=== PATIENT | female | born 1985 | race Caucasian/White ===

== ENCOUNTER 2021-09-21 16:36 | Outpatient (CLI) | payer OTHER, SELFPAY | END 2021-09-21 23:59 | disposition short-term general hospital (02) | LOC: LABSPEC 16:39 | PROVIDERS: PCP Family Medicine; Visit Provider Physician Assistant | DX: U07.1 COVID-19 (principal) | CPT/HCPCS: 87635; U0003; U0005 ==

== ENCOUNTER → 2023-03-27 | Outpatient (CLI) | payer OTHER, SELFPAY ==
[2023-03-30 15:08] LABS: HPV APTIMA, High Risk Negative (Negative)
== END | disposition home or self-care (01) ==
LOC: LABSPEC 10:59
PROVIDERS: PCP Family Medicine; Visit Provider Student in an Organized Health Care Education/Training Program
DX: Z12.4 Encounter for screening for malignant neoplasm of cervix (principal)
CPT/HCPCS: 87624; 88175; G0145

== ENCOUNTER → 2024-03-11 | Outpatient (CLI) | payer SELFPAY ==
[2024-03-11 10:35] LABS: Hematocrit 40.2 % (37-47); Hemoglobin 12.9 g/dL (12.0-15.0); Mean Corp Hgb Conc 32.1 g/dL (32-36); Mean Corpuscular Hgb 27.8 pg (27.0-32.0); Mean Corpuscular Volume 86.6 fL (81-99); Mean Platelet Vol. 9.6 fl (6.2-12.0); Platelet Count 296 K/mm3 (150-450); RBC Distribution Width SD 44.5 fl (35.1-43.9); Red Blood Count 4.64 M/mm3 (4.2-5.4); White Blood Count 6.1 K/mm3 (4.4-11.0)
[2024-03-11 11:18] LABS: Glucose 75GTT - 30 minutes 120 mg/dL (100-160)
[2024-03-11 11:22] LABS: T3 Total - Triiodothyronine 1.07 ng/mL (0.6-1.81)
[2024-03-11 11:25] LABS: Glucose 75GTT - Fasting 102 mg/dL (70-99)
[2024-03-11 11:39] LABS: Free T3 2.2 pg/mL (2.18-3.98); T4 Free Direct 0.83 ng/dL (0.76-1.46); Thyroid Stim Hormone (TSH) 1.99 uIU/mL (0.358-3.74)
[2024-03-11 11:42] LABS: Glucose 75GTT - 60 minutes 142 mg/dL (100-160)
[2024-03-11 11:58] LABS: Thyroid Stim Hormone (TSH) 2.15 uIU/mL (0.358-3.74)
[2024-03-11 12:04] LABS: Thyroid Stim Hormone (TSH) 2.02 uIU/mL (0.358-3.74)
[2024-03-11 12:43] LABS: Glucose 75GTT - 120 minutes 121 mg/dL (70-140)
[2024-03-12 10:09] LABS: Insulin Level 45.4 uIU/mL (2.6-24.9)
[2024-03-12 10:09] LABS: Insulin Level 8.6 uIU/mL (2.6-24.9)
== END | disposition home or self-care (01) ==
PROVIDERS: PCP Family Medicine; Referring Provider Obstetrics & Gynecology; Visit Provider Obstetrics & Gynecology
DX: N93.9 Abnormal uterine and vaginal bleeding, unspecified (principal); Z13.29 Encounter for screening for other suspected endocrine disorder; Z83.3 Family history of diabetes mellitus; Z13.1 Encounter for screening for diabetes mellitus
CPT/HCPCS: 36415; 82951; 82952; 83525; 84146; 84439; 84443; 84480; 84481; 85027

== ENCOUNTER → 2024-03-13 | Outpatient (CLI) | payer SELFPAY, OTHER ==
--- NOTE | 2024-03-13 12:27 | US_ITS ---
STUDY: ULTRASOUND OF THE FEMALE PELVIS - COMPLETE REASON FOR EXAM: Female, 38 years old. ABNORMAL UTERINE BLEEDING LMP: TECHNIQUE: Transabdominal and Transvaginal TECHNICAL QUALITY: Adequate. COMPARISON: None. FINDINGS: The uterus is anteverted and is in a midline position. The uterus measures 11.2 x 7.6 x 6.7 cm. Normal uterine cervix. The endometrium measures 25 mm in thickness, and is hyperechoic. 21 mm round hypoechoic mass either within or adjacent to the endometrial cavity may represent an endometrial mass or a submucosal fibroid. Another 1.9 Center hypoechoic mass in the fundus the uterus superior to the endometrial stripe consistent with a submucosal fibroid. 3 cm exophytic hypoechoic mass of the anterior body of uterus consistent with a subserosal fibroid. I.U.D. - The patient does not have an I.U.D. The right ovary is visualized. The right ovary measures 3.2 x 2.4 x 2.0 cm. There is no right ovarian cyst or ovarian mass. There is no visualized right adnexal mass or complex lesion. There is normal arterial and normal venous vascularity. The left ovary is visualized. The left ovary measures 2.4 x 3.1 x 1.4 cm. There is no left ovarian cyst or ovarian mass. There is no visualized left adnexal mass or complex lesion. There is normal arterial and normal venous vascularity. There is no fluid in the cul-de-sac. The pre void volume of the bladder was ml. The post void volume of the bladder was ml. Polycystic ovary disease: No. US/Pelvic w/ Transvaginal IMPRESSION: 1. Enlarged fibroid uterus including a 3 cm exophytic subserosal fibroid in the anterior body of the uterus adjacent to the bladder. 2. Thickened endometrium with a possible 2.1 cm hypoechoic mass which may represent an endometrial mass or a submucosal fibroid. Hysteroscopy may be useful. Electronically Signed: Tapan De Leon MD at 10:42 EDT ,
== END | disposition home or self-care (01) ==
PROVIDERS: PCP Family Medicine; Referring Provider Obstetrics & Gynecology; Visit Provider Obstetrics & Gynecology
DX: N93.9 Abnormal uterine and vaginal bleeding, unspecified (principal)
CPT/HCPCS: 76830; 76856

== ENCOUNTER 2025-01-01 13:03 | Emergency (ER) | payer OTHER, SELFPAY ==
[2025-01-01 13:04] VITALS: BP 141/94; PULSE 99; RESP 14; TEMP 36.8; O2SAT 100; BMI 27.1
--- NOTE | 2025-01-01 13:23 | VDLE_ITS ---
Reason For Study Reason For Study: Left leg pain RIGHT LEFT CFV is compressible, spontaneous, phasic, competent GSV is normal. and demonstrates normal augmentation. CFV is compressible, spontaneous, phasic, competent, Procedure and demonstrates normal augmentation. This is a venous duplex using B-mode, color flow and FV is compressible, spontaneous, phasic, competent spectral Doppler. and demonstrates normal augmentation. Exam performed portable in ED. POP V is compressible, spontaneous, phasic, competent A preliminary report was called and/or faxed to and demonstrates normal augmentation. Genaro. T/P Trunk is compressible. PTV is compressible. LT PerV is compressible. Thrombus filled varicose veins noted in the anterior lateral distal thigh to knee. VL/Venous Duplex US, Unilateral Interpretation Summary Acute superficial vein thrombosis noted in distal left thigh varicosities. Deep veins of the left lower extremity are patent and compressible segmentally. There is no evidence of left lower extremity deep vein thrombosis. The left great saphenous vein appears patent an d compressible segmentally. Ordering Physician: Marvel Lam Referring Physician: James Swift M.D. Performed By: Ananya Lin RVT
--- NOTE | 2025-01-01 13:23 | ED.VIS.LOWEX ---
HPI History of Present Illness Chief Complaint: Lower Extremity Injury Detail of Chief Complaint: Leg pain/swelling Informant: patient Narrative Narrative: Patient presents to the emergency department complaint of pain and swelling to her left leg. She noticed it today has history of some varicose veins. Denies any trauma to her leg. She had a hysterectomy in July. No prior DVT. No significant medical history. PFSH PFSH Home Medications ?Medication ?Instructions ?Recorded ?Last Taken ?Type naproxen 500 mg tablet 500 mg PO BID #14 tabs 01/01/25 Unknown Rx Allergy/AdvReac Type Severity Reaction Status Date / Time No Known Allergies Allergy Verified 01/01/25 13:06 Surgical History H/O: hysterectomy Social History Smoking Status: Never smoker ROS ROS ED Review of Systems ROS Unobtainable: other Constitutional Constitutional ED: Reports lethargy; Denies chills, fever(s), sweats or weight loss Eyes Eyes: Denies blurry vision, change in vision or diplopia ENT ENT ED: Denies rhinorrhea or sore throat Cardiovascular Cardiovascular: Denies chest pain, orthopnea or racing heartbeat Respiratory/Chest Respiratory/Chest: Reports dyspnea and dyspnea on exertion; Denies cough, orthopnea or sputum Gastrointestinal Gastrointestinal: Denies abdominal pain, diarrhea, nausea or vomiting Genitourinary Genitourinary ED: Denies dysuria, hematuria or urinary frequency Musculoskeletal Musculoskeletal: Reports other Details: Left leg/thigh pain and swelling ; Denies arthralgias, back pain, myalgias or neck pain Integumentary Denies abscess, Abrasions or rash Neurologic Neurologic: Denies headache(s) or weakness Psychiatric Psychiatric: Denies anxiety, depression or suicidal thoughts Endocrine Endocrinology: Denies polydipsia, polyphagia or polyuria Hematologic/Lymphatic Hematologic/Lymphatic: Denies easy bleeding, easy bruising or lymphadenopathy Allergic/Immunologic Allergic/Immunologic ED: Denies mouth swelling, tongue swelling or urticaria EXAM Physical Exam Const Vital Signs: 01/01/25 13:04 Temperature 98.3 F Temperature Source Oral Pulse Rate 99 Respiratory Rate 14 Blood Pressure 141/94 H Blood Pressure Mean 109 Pulse Ox 100 Positive well nourished and well developed General Appearance ED: well developed and NAD HEENT Reports TM's clear and moist mucous membranes normocephalic and atraumatic; Negative for trauma or tenderness Tympanic Membrane ED: Yes TM's clear Eyes PERRL and EOMs intact bilaterally General Eye ED: Negative for pale conjunctiva or scleral icterus Neck no lymphadenopathy, supple and no JVD General: Negative for tenderness Chest Wall inspection of chest normal and palpation of chest normal Chest: Negative for tenderness Resp normal respiratory effort and clear to auscultation bilaterally Effort and Inspection: Negative for respiratory distress or pain with movement Auscultation: Negative for rhonchi, wheezes or diminished lung sounds Cardio regular rate, regular rhythm, S1 normal heart sound, S2 normal heart sound and no murmurs Peripheral Pulses: pulses 2+ throughout GI normal to inspection, nondistended, normoactive bowel sounds, soft to palpation, non-tender, non-distended and no masses Back/Spine no CVA tenderness and no thoracic nor lumbar tenderness Extremity Extremity Narrative: Left leg-patient has what appears to be superficial thrombophlebitis of the left lateral distal thigh. Area slightly tender to palpation. Some fullness of the venous system. Neurovascularly intact distally. General Extremety ED: Negative for edema General Extremity: Negative for edema Neuro oriented x3, CN's II-XII intact bilaterally, no sensory deficits noted and gait normal Sensorium / Orientation: awake, alert, oriented to person, oriented to place and oriented to time Motor Exam: strength 5/5 throughout and strength abnormal Psych mental status grossly normal Skin no rashes or lesions noted and no wounds MDM MDM MDM Narrative Medical decision making narrative: Patient has what appears to be a superficial thrombophlebitis of the left lower extremity/thigh. Will obtain a venous Doppler to rule out involvement of the deep venous system. Venous Doppler of the left lower extremity obtained was negative for DVT. Patient was noted to have superficial thrombophlebitis. Patient advised to use warm compresses to the area and will start on naproxen. Will refer to vascular surgeon for follow-up if she continues to have any issues. Discharge Plan Triage Chief Complaint: Lower Extremity Injury ED Provider: Marvel Lam Dx/Rx/DC Orders Clinical Impression: Superficial thrombophlebitis Instructions: ED Thrombophlebitis, Superficial Prescriptions: New naproxen 500 mg tablet 500 mg PO BID Qty: 14 0RF Primary Care Provider: Maritza Park NP Referrals: Ike Swift DO [Med Staff - [employer] Clerk] - Vinicius Lindsey MD [Med Staff - Active Staff] - 3-5 Days Print Language: Ukrainian Disposition Disposition: Home, Self Care
[2025-01-01 13:59] VITALS: BP 141/94; PULSE 99; RESP 14; TEMP 36.8; O2SAT 100
== END 2025-01-01 14:02 | disposition home or self-care (01) ==
PROVIDERS: Emergency Provider Emergency Medicine; PCP Nurse Practitioner Family; Visit Provider Emergency Medicine
DX: M79.605 Pain in left leg (principal); I80.02 Phlebitis and thrombophlebitis of superficial vessels of left lower extremity; M79.89 Other specified soft tissue disorders; Z90.710 Acquired absence of both cervix and uterus
CPT/HCPCS: 93971; 99282

== ENCOUNTER → 2025-03-28 | Outpatient (CLI) | payer SELFPAY, OTHER ==
--- NOTE | 2025-03-28 08:25 | VDLE_ITS ---
Reason For Study Reason For Study: Varicose veins RIGHT LEFT CFV is compressible, spontaneous, phasic, competent CFV is compressible, spontaneous, phasic, competent, and demonstrates normal augmentation. and demonstrates normal augmentation. FV is compressible, spontaneous, phasic, competent FV is compressible, spontaneous, phasic, competent and demonstrates normal augmentation. and demonstrates normal augmentation. POP V is compressible, spontaneous, phasic, competent POP V is compressible, spontaneous, phasic, competent and demonstrates normal augmentation. and demonstrates normal augmentation. T/P Trunk is compressible. T/P Trunk is compressible. PTV is compressible. PTV is compressible. RT PerV is compressible. LT PerV is compressible. SFJ is competent and measures 0.58 cm. SFJ is INCOMPETENT and measures 0.53 cm. GSV proximal thigh measures 0.22 x 0.21 cm. GSV proximal thigh measures 0.18 x 0.21 cm. GSV at knee measures 0.13 x 0.15 cm. GSV at knee measures 0.11 x 0.12 cm. GSV is competent throughout. GSV is competent throughout. ASV from junction is INCOMPETENT for greater than 0.5 ASV from junction is INCOMPETENT for greater than 0.5 seconds and measures 0.36 x 0.39 cm. seconds and measures 0.25 x 0.26 cm. SSV mid calf is competent and measures 0.12 x 0.10 SSV mid calf is competent and measures 0.08 x 0.08 cm. cm. Procedure This is a venous duplex using B-mode, color flow and spectral Doppler. Exam performed in department. Patient was scanned in reverse Trendelenburg position during reflux assessment. VL/Venous Duplex US - Eugenio Extrem Interpretation Summary No oDVT. Bilateral ASV with reflux. Ordering Physician: Gaetano Cuevas Referring Physician: Deandre Phillips Performed By: Ananya Lin RVT
== END | disposition home or self-care (01) ==
LOC: CVS 08:21
PROVIDERS: PCP Nurse Practitioner Family; Referring Provider Surgery Vascular Surgery; Visit Provider Surgery Vascular Surgery
DX: I83.893 Varicose veins of bilateral lower extremities with other complications (principal); I82.812 Embolism and thrombosis of superficial veins of left lower extremity
CPT/HCPCS: 93970